=== PATIENT | female | born 1940 | race Caucasian/White ===

== ENCOUNTER → 2016-10-26 | Outpatient (CLI) | payer MEDICARE, BC | LOC: MC.RAD 13:00 | DX: Z12.31 Encounter for screening mammogram for malignant neoplasm of breast (principal) ==

== ENCOUNTER → 2017-01-02 | Outpatient (CLI) | payer MEDICARE, BC | LOC: COL.RAD 14:47 | DX: N28.1 Cyst of kidney, acquired (principal); R03.0 Elevated blood-pressure reading, without diagnosis of hypertension ==

== ENCOUNTER → 2017-02-21 | Outpatient (CLI) | payer MEDICARE, BC | LOC: COL.RAD 09:28 | DX: R19.09 Other intra-abdominal and pelvic swelling, mass and lump (principal) | CPT/HCPCS: Q9967 ==

== ENCOUNTER → 2018-05-13 | Outpatient (CLI) | payer MEDICARE, BC | LOC: MC.RAD 14:45 | DX: Z12.31 Encounter for screening mammogram for malignant neoplasm of breast (principal) ==

== ENCOUNTER → 2019-12-25 | Outpatient (CLI) | payer MEDICARE, BC | LOC: MC.RAD 10:14 | DX: Z12.31 Encounter for screening mammogram for malignant neoplasm of breast (principal) ==

== ENCOUNTER → 2020-04-29 | Outpatient (CLI) | payer MEDICARE, BC | LOC: COL.RAD 09:34 | DX: R10.819 Abdominal tenderness, unspecified site (principal); R31.29 Other microscopic hematuria; R10.9 Unspecified abdominal pain; Z87.898 Personal history of other specified conditions; Z90.722 Acquired absence of ovaries, bilateral; Z90.710 Acquired absence of both cervix and uterus ==

== ENCOUNTER → 2021-02-14 | Outpatient (CLI) | payer MEDICARE, BC | LOC: MC.RAD 14:30 | DX: Z12.31 Encounter for screening mammogram for malignant neoplasm of breast (principal) ==

== ENCOUNTER → 2023-11-01 | Outpatient (CLI) | payer MEDICARE, BC | LOC: COL.RAD 06:59 | DX: K40.90 Unilateral inguinal hernia, without obstruction or gangrene, not specified as recurrent (principal); M79.89 Other specified soft tissue disorders ==